=== PATIENT | female | born 1985 | race Caucasian/White ===

== ENCOUNTER 2018-05-09 11:08 | Day surgery (SDC) | payer MEDICAID, OTHER ==
--- NOTE | 2018-05-03 23:32 | PREOPHP ---
DATE OF ADMISSION: 05/09/2018 The patient is coming on 05/09/2018 for a surgical procedure. HISTORY OF PRESENT ILLNESS: This is a 32-year-old female 5, para 4 with 3 full term deliveri es. First baby stillbirth at 22 weeks followed by spontaneous vaginal deliveries. All 3 of them wit h cerclages due to cervical incompetence. This patient is now. Her due date is 11/05/2018. Her last period was 01/08/2018 and she is being admitted as an outpatient for cerclage of the cervi x. The patient had been bleeding and spotting since early and the patient with a history o f 3 previous cerclages has been scheduled for a cerclage at 14 weeks of her . PAST MEDICAL HISTORY: Otherwise, is healthy. ALLERGIES: HAS NO ALLERGIES. She has no history of drugs. SOCIAL HISTORY: No history of smoking or alcohol. FAMILY HISTORY: Cancer and varicosities. PHYSICAL EXAMINATION: VITAL SIGNS: Normal. The blood pressure is 120/80. She weighs 225 pounds. She is 5 feet 4 inches and she has morbid obesity. HEAD AND NECK: Normal. CHEST: Clear. HEART: Normal sinus rhythm. LUNGS: Clear. ABDOMEN: Soft, nontender. No masses. The uterus at 14 weeks size of a with normal heart tones. PELVIC: With a cervix that is closed and noneffaced. at this time, and normal heart tones. EXTREMITIES: Normal with normal pulses and no edema. DIAGNOSES: 1. 14 weeks , previous 3 vaginal deliveries with cerclages of the cervix af ter a stillbirth at 22 weeks. PLAN: She is undergoing a cervical cerclage again She has been advised of the possible risks and pos sible complications of the procedure with her alternatives and options. Written information was prov ided. She had no more questions and agreed to go ahead with the procedure with full understanding an d no more questions. Dictated By: FRANCIS SHAW/NTS Conf#: [id number] DID#: [id number]
[~2018-05-09] VITALS: Ht 162.6 cm; Wt 97.6 kg
[2018-05-09] VITALS (10 sets, daily range): BP systolic 101–126; BP diastolic 58–95; PULSE 77–96; RESP 16–26; Ht 162.6 cm; Wt 97.6 kg
--- NOTE | 2018-05-09 07:46 | HPN ---
Date/Time of Note Date/Time of Note DATE: 05/09/18 TIME: 07:46 Interval H&P Admission Note Pt. seen H&P reviewed: No system changes FRANCIS CHARLES MD May 09, 2018 07:46
[~2018-05-09 11:08] MED LIST: CEFAZOLIN 2 GM/50 ML (PMX) 50 ML IVPB ONE
--- NOTE | 2018-05-09 12:17 | PREAC ---
Date/Time of Note Date/Time of Note DATE: 05/09/18 TIME: 12:17 Anesthesia Eval and Record Evaluation Time Pre-Procedure Interview DATE: 05/09/18 TIME: 12:17 Age 32 Sex female NPO: 8 hrs Preoperative diagnosis Cervical incompetence Planned procedure Cervical cerclage Past Medical History Past Medical History: None Surgery & Anesthesia Issues No known issue Meds Anticoagulation: No Beta Mara within 24 hr: No Reason Beta Mara not given: Pt. not on B-Mara No Active Prescriptions or Reported Meds Meds reviewed: Yes Allergies Coded Allergies: No Known Allergy (Verified , 05/09/18) Allergies Reviewed: Yes Labs/Studies Labs Reviewed: Reviewed by anesthesiologist Result Diagram: 05/09/18 1135 Laboratory Tests 05/09/18 11:35 test: Positive (14 week ) Pre-procedure Exam Last vitals Vital Signs Date Temp Pulse Resp B/P (MAP) Pulse Ox O2 O2 Flow FiO2 Time Delivery Rate 05/09/18 98.1 96 16 126/82 100 Room Air 11:15 (97) Airway: Adequate mouth opening Mallampati: Mallampati II Teeth: Normal Lung: Normal Heart: Normal ASA Physical Status ASA physical status: 2 Emergency: None Planned Anesthetic Neuraxial: Spinal Planned Pain Management Parenteral pain med Pre-operative Attestations Prior to commencing anesthesia and surgery, the patient was re-evaluated, there was verification of: *The patient's identity *The results of appropriate recent lab work and preoperative vital signs *The above evaluation not changing prior to induction *Anesthetic plan, risk benefits, alternative and complications discussed with patient/family; questions answered; patient/family understands, accepts and wishes to proceed. MIKAYLA UMAÑA MD May 09, 2018 12:17
[2018-05-09] MEDS ORDERED: CEFAZOLIN 1 GM INJ ONE (12:47)
--- NOTE | 2018-05-09 13:19 | PD.PPDC ---
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
--- NOTE | 2018-05-09 13:26 | SIPON ---
Date/Time of Note Date/Time of Note DATE: 05/09/18 TIME: 13:25 Operative Report Preoperative Diagnosis 15 weeks Cervical incompetence 3 previous cerclage of cervix Postoperative Diagnosis Same Operation/Procedure Performed Cervical cerclage Barreto procedure Surgeon see signature line assistant drafter None Anesthesia: spinal Estimated blood loss: minimal Transfusion Required none Specimen None Grafts/Implants none Complications none FRANCIS CHARLES MD May 09, 2018 13:26
--- NOTE | 2018-05-09 13:57 | OPR ---
DATE OF OPERATION: 05/09/2018 PROCEDURES: Cervical cerclage, Barreto procedure. PREOPERATIVE DIAGNOSES: 1. Cervical length incompetence. 2. A 15 weeks' . POSTOPERATIVE DIAGNOSES: 1. Cervical length incompetence. 2. A 15 weeks' . ANESTHESIA: Spinal anesthesia. ANESTHESIOLOGIST: Abelino Toribio MD COMPLICATIONS: None. PROCEDURE IN DETAILS: The patient was given a spinal anesthesia, placed in the supine position in li thotomy position. A Gomez catheter was placed in the bladder. The vaginal area was prepped and drap ed and Mersilene suture #5 was passed at the cervical vaginal junction at 12 o'clock, 3 o'clock, 6 o' clock and 9 o'clock and tied at 12 o'clock with several knots. The ends and stumps of the sutures we re sutured together with #0 silk and #1 nylon to prevent dislodgement of the sutures. The patient to lerated the procedure well and left the OR awake and stable. Sponge counts and instrument counts wer e correct. Intravenous antibiotics were given for prophylaxis. Blood loss was minimal and the urine was clear at the end of the procedure. Dictated By: FRANCIS SHAW/BRYNN Conf#: [id number] DID#: [id number]
--- NOTE | 2018-05-09 22:46 | PAC ---
Date/Time of Note Date/Time of Note DATE: 05/09/18 TIME: 22:45 Post-Anesthesia Notes Post-Anesthesia Note Last documented vital signs Vital Signs Date Temp Pulse Resp B/P (MAP) Pulse Ox O2 O2 Flow FiO2 Time Delivery Rate 05/09/18 98.0 77 20 114/58 14:34 (76) 05/09/18 100 Room Air 13:57 Activity: WNL Respiratory function: WNL Cardiovascular function: WNL Mental status: Baseline Pain reasonably controlled: Yes Hydration appropriate: Yes Nausea/Vomiting absent: Yes MIKAYLA UMAÑA MD May 09, 2018 22:46
== END 2018-05-09 18:39 | disposition home or self-care (01) ==
LOC: SDS 11:08 → L-D 14:15 → SDS 18:39
PROVIDERS: ATTEND Obstetrics & Gynecology
DX: O34.32 Maternal care for cervical incompetence, second trimester (principal); Z3A.15 15 weeks gestation of pregnancy
CPT/HCPCS: 59320; 81001; 84703; 85025; 85610; 85730; J0690; Z7512; Z7610

== ENCOUNTER 2018-09-27 23:20 | Outpatient (CLI) | payer OTHER ==
[~2018-09-27] VITALS: Ht 162.6 cm; Wt 99.6 kg
[2018-09-27 23:45] VITALS: BP 107/70; PULSE 97; RESP 18; Ht 162.6 cm; Wt 99.6 kg
[2018-09-28] MEDS ORDERED: PREN-99 PO (00:26)
--- NOTE | 2018-09-28 02:57 | TRIAGE ---
OB Triage Datetime Report Generated by CPN: 09/28/2018 02:57 Datetime: 09/28/2018 01:07 Monitor Mode: External Datetime: 09/28/2018 01:00 Monitor Mode: External Datetime: 09/28/2018 00:17 Labor Evaluation Frequency: IRREGULAR Monitor Mode: External Duration (sec)2399: 50-70 Quality: Mild Pattern: Normal: <= 5 Contractions in 10 Minutes Resting Tone [place]: Relaxed Heart Rate FHR Baseline Rate: 135 Monitor Mode: External US Variability: Moderate 6-25 bpm Accelerations: 15X15 Decelerations: None Category: Category I Comments: NST REACTIVE Datetime: 09/28/2018 00:16 Monitor Mode: External Datetime: 09/27/2018 23:50 Time of Arrival: 09/27/2018 23:17 EGA: 34.3 Arrived By: Wheelchair Arrived From: Home Chief Complaint: c/o irregular UC's from 09/26/2018. Dr. Stuart sent her for follow up since she has a cervical cerclage in place. UC's became regular at 2230 every 20 minutes. Movement: Present Contractions: Regular Time Contractions Began: 09/27/2018 22:30 Contractions: 20 MINUTES Rupture of Membranes: Denies Vaginal Discharge: Denies Recent Sexual Intercouse: Denies Abdominal Trauma: Not Applicable Patient Complaints: Contractions; Back Pain Time Provider Notified: 09/27/2018 23:53 Provider Notified: MELVIN Initial Plan: EFM Datetime: 09/27/2018 23:45 Stage of : OB Triage Assessment Type: Triage Maternal Assessment Level of Consciousness: Fully Conscious DTR's/Clonus: DTRs 2+; No Clonus Headache: Denies Blurred Vision: No Respiratory Effort: Unlabored; Regular Rhythm; Equal Expansion Breath Sounds, Left: Clear and Equal Breath Sounds, Right: Clear and Equal Nausea/Vomiting: Denies RUQ Epigastric Pain: Denies Facial Edema: None Temperature Route: Oral Fall Risk Assessment History of Falling: (0) No Secondary Diagnosis: (0) No Ambulatory Aid: (0) Bedrest/Nurse Assist IV Therapy: (0) No Gait: (0) Normal/Bedrest/Immobile Mental Status: (0) Oriented to Own Ability Fall Score: 0 Fall Risk Score Definition: No Risk: No action required Pain Assessment Pain Scale: 5 Pain Presence: Intermittent Pain Type: Contraction Pain Location: Abdomen; Back Pain Goal: 0 Pain Relief Measures: Comfort Measures Datetime: 09/27/2018 23:43 Monitor Mode: External Monitor Mode: External US Datetime: 09/27/2018 23:41 Stage of : OB Triage
--- NOTE | 2018-09-28 02:57 | PN ---
Triage Information Date/Time 09/28/18 Reason for visit: Uterine contractions Weeks of Gestation 34w3d /Para A1 Diabetes: none Hypertention: none Objective Vital Signs Date Temp Pulse Resp B/P (MAP) Pulse Ox O2 O2 Flow FiO2 Time Delivery Rate 09/27/18 98.1 97 18 107/70 Room Air 23:45 (82) Heart Rate: 140's Heart Rate Comments CAT I Results/Medications Results 24 hrs Laboratory Tests Test 09/27/18 23:45 Urine Color YELLOW Urine Clarity SLIGHTLY CLOUDY A Urine pH 5.0 Urine Specific [place] 1.028 Urine Ketones TRACE A Urine Nitrite NEGATIVE Urine Bilirubin NEGATIVE Urine Urobilinogen 1+ H Urine Leukocyte Esterase NEGATIVE Urine Microscopic RBC 3 Urine Microscopic WBC 11 H Urine Calcium Oxalate Crystals MODERATE Urine Bacteria MODERATE Urine Mucus MODERATE Urine Hemoglobin NEGATIVE Urine Glucose NEGATIVE Urine Total Protein NEGATIVE Imaging Results JOE 9.2 CVL 4.3 BPP 8/8 Disposition: Discharge Assessment/Plan A IUP 34w3 borderline oligo acute cystitis urine culture sent P RT for check the JOE in 3days LUCAS MARTINEZ MD September 28, 2018 02:57
--- NOTE | 2018-09-28 03:09 | TRIAGE ---
OB Triage Datetime Report Generated by CPN: 09/28/2018 03:09 Datetime: 09/27/2018 23:50 EGA: 34.3
== END 2018-09-28 03:08 | disposition home or self-care (01) ==
LOC: L-D 23:20 → OBT 23:20
PROVIDERS: ATTEND Obstetrics & Gynecology
DX: O23.13 Infections of bladder in pregnancy, third trimester (principal); O62.9 Abnormality of forces of labor, unspecified; O41.03X0 Oligohydramnios, third trimester, not applicable or unspecified; Z3A.34 34 weeks gestation of pregnancy
CPT/HCPCS: 76817; 76818; 81001; 81003; 87086; Z7500; G0463

== ENCOUNTER 2018-10-01 23:20 | Outpatient (CLI) | payer OTHER ==
[~2018-10-01] VITALS: Ht 160 cm; Wt 100.2 kg
[~2018-10-01 23:20] MED LIST changes: -CEFAZOLIN 2 GM/50 ML (PMX) 50 ML IVPB ONE; +PREN-99 PO
[2018-10-01 23:49] VITALS: Ht 160 cm; Wt 100.2 kg
--- NOTE | 2018-10-02 01:36 | PN ---
Triage Information Date/Time October 02, 2018 Reason for visit: Oligohydramnios Weeks of Gestation 35w /Para 5/3 Diabetes: none Hypertention: none Additional information Pt has a cerclage, which she has had for all her pregnancies. She was sent in 09/[address] Stuart thought she felt that her cervix was a bit short on one side. The cervix proved to be long and closed but the JOE was 9.[address] Tobias asked her to return today for a recheck. +FM. No leaking or bleeding. PMHx: none. PSHx: Cerclage x 4. POBHx: x 3. NKDA. Objective BP 114/71 T= 97.6 Heart Rate: 130's Heart Rate Comments Accels to 150 BPM. No decels. Contractions: None Results/Medications Imaging Results BPP 8 with an JOE of 12. VTX. Disposition: Discharge Assessment/Plan A: IUP at 35 weeks. Cerclage. F/u oligohydramnios. P: August d/c home. No need for f/u unless Dr Stuart wishes her to. kick counts and PTL precautions reviewed. ONUR AZUL MD Oct 02, 2018 01:36
--- NOTE | 2018-10-02 03:53 | TRIAGE ---
OB Triage Datetime Report Generated by CPN: 10/02/2018 03:53 Datetime: 10/02/2018 01:30 Stage of : OB Triage Labor Evaluation Frequency: X1/30 MIN Monitor Mode: External Duration (sec)2399: 40 Quality: Mild Pattern: Normal: <= 5 Contractions in 10 Minutes Resting Tone [place]: Relaxed Heart Rate FHR Baseline Rate: 130 Monitor Mode: External US Variability: Moderate 6-25 bpm Accelerations: 15X15 Decelerations: None Category: Category I Pain Assessment Pain Scale: 0 Pain Presence: None/Denies Datetime: 10/02/2018 01:00 Stage of : OB Triage Labor Evaluation Frequency: X1/1 HR Monitor Mode: External Duration (sec)2399: 40 Quality: Mild Pattern: Normal: <= 5 Contractions in 10 Minutes Resting Tone [place]: Relaxed Heart Rate FHR Baseline Rate: 135 Monitor Mode: External US Variability: Moderate 6-25 bpm Decelerations: None Category: Category I Pain Assessment Pain Scale: 0 Pain Presence: None/Denies Datetime: 10/02/2018 00:00 Stage of : OB Triage Temperature Route: Oral Labor Evaluation Frequency: 0 Monitor Mode: External Pattern: Normal: <= 5 Contractions in 10 Minutes Resting Tone [place]: Relaxed Heart Rate FHR Baseline Rate: 130 Monitor Mode: External US Variability: Moderate 6-25 bpm Accelerations: 15X15 Decelerations: None Category: Category I Pain Assessment Pain Scale: 0 Pain Presence: None/Denies Datetime: 10/01/2018 23:46 Assessment Type: Triage Time of Arrival: 10/01/2018 23:15 EGA: 36.0 Arrived By: Wheelchair Arrived From: Home Chief Complaint: REPEAT BPP/JOE Movement: Present Contractions: Occasional Rupture of Membranes: Denies Vaginal Bleeding: None Vaginal Discharge: Denies Recent Sexual Intercouse: Denies Abdominal Trauma: Not Applicable Time Provider Notified: 10/02/2018 00:30 Provider Notified: Reiche Initial Plan: EFM, BPP/JOE Maternal Assessment Level of Consciousness: Fully Conscious DTR's/Clonus: DTRs 2+; No Clonus Headache: Denies Blurred Vision: No Respiratory Effort: Unlabored; Regular Rhythm; Equal Expansion Breath Sounds, Left: Clear and Equal Breath Sounds, Right: Clear and Equal Nausea/Vomiting: Denies RUQ Epigastric Pain: Denies Lower Extremities Edema: None Upper Extremities Edema: None Facial Edema: None Fall Risk Assessment History of Falling: (0) No Secondary Diagnosis: (0) No Ambulatory Aid: (0) Bedrest/Nurse Assist IV Therapy: (0) No Gait: (0) Normal/Bedrest/Immobile Mental Status: (0) Oriented to Own Ability Fall Score: 0 Fall Risk Score Definition: No Risk: No action required Datetime: 09/28/2018 02:41 Labor Evaluation Frequency: IRREGULAR Monitor Mode: External Duration (sec)2399: 50-110 Quality: Mild Pattern: Normal: <= 5 Contractions in 10 Minutes Resting Tone [place]: Relaxed Datetime: 09/28/2018 02:40 Pain Presence: None/Denies Pain Assessment Comments: PT C/O OCCASIONAL CRAMPING Datetime: 09/28/2018 01:40 Labor Evaluation Frequency: X1 Monitor Mode: External Duration (sec)2399: 100 Quality: Mild Pattern: Normal: <= 5 Contractions in 10 Minutes Resting Tone [place]: Relaxed Datetime: 09/28/2018 01:01 Labor Evaluation Frequency: X1 Monitor Mode: External Duration (sec)2399: 90 Quality: Mild Pattern: Normal: <= 5 Contractions in 10 Minutes Resting Tone [place]: Relaxed Datetime: 09/27/2018 23:50 EGA: 35.3 Vaginal Bleeding: None Datetime: 09/27/2018 23:45 Fall Score: 0 Fall Risk Score Definition: No Risk: No action required
== END 2018-10-02 01:46 | disposition home or self-care (01) ==
LOC: OBT 23:20 → L-D 23:20 → OBT 10-02 01:46
PROVIDERS: ATTEND Obstetrics & Gynecology
DX: O41.03X0 Oligohydramnios, third trimester, not applicable or unspecified (principal); Z3A.35 35 weeks gestation of pregnancy
CPT/HCPCS: 76818; Z7500; G0463

== ENCOUNTER 2018-10-20 10:25 | Outpatient (CLI) | payer OTHER ==
[~2018-10-20] VITALS: Ht 162.6 cm; Wt 99.0 kg
[2018-10-20 10:44] VITALS: BP 129/78; PULSE 18; RESP 18; Ht 162.6 cm; Wt 99.0 kg
--- NOTE | 2018-10-20 13:26 | PN ---
Triage Information Date/Time 33 years old female 5 para 4 abortions 1 with 3 term deliveries and one at 22 weeks stillbirth at 22 weeks ,after that stillbirth in 2008 this patient had 3 cerclages with the present her fourth cerclage due to cervical incompetence. so far she has done very very well and she is at 38 weeks now. her last menstrual period was 01/08/2018 at she is a 38 weeks. she has been pepe irregularly for which the decision was to remove the cerclage and monitor her. The patient will be monitored for the next couple of hours and if she is not pepe harder and no further dilatation is seen she will be sent home PIH labs will be done due to the reflexes are hyperactive at 3+ almost brisk with normal blood pressure. NST BPP were normal. Reason for visit: Weeks of Gestation 38 /Para 5 para 4 Hypertention: none Objective Vital Signs Date Temp Pulse Resp B/P (MAP) Pulse Ox O2 O2 Flow FiO2 Time Delivery Rate 10/20/18 98.5 18 18 129/78 Room Air 10:44 (95) Heart Rate: 130's Contractions: >10 Minutes Apart Disposition: Discharge Assessment/Plan She will be discharged if she is not pepe in the next 2 hours. The cerclage was removed. after the cerclage was removed the cervix is at 2 cm with 50% effacement -2 station and membranes intact. She has no dizziness headaches epigastric pain nor blurred vision. Leg edema is negative.. Her final diagnosis is: 38 weeks with a cerclage (due to cervical incompetence placed in the first trimester of .) Patient with irregular contractions. Cerclage removal. She will be evaluated for mild preeclampsia. And will be sent home if she is stable and have no imminent active labor. FRANCIS CHARLES MD Oct 20, 2018 13:25
--- NOTE | 2018-10-20 15:28 | TRIAGE ---
OB Triage Datetime Report Generated by CPN: 10/20/2018 15:28 Datetime: 10/20/2018 15:00 Labor Evaluation Frequency: x1 Monitor Mode: External Duration (sec)2399: 40 Quality: Mild Pattern: Normal: <= 5 Contractions in 10 Minutes Resting Tone [place]: Relaxed Heart Rate FHR Baseline Rate: 130 Variability: Moderate 6-25 bpm Accelerations: 15X15 Comments: loss of contact Datetime: 10/20/2018 14:13 Comments: loss of contact, pt repositioned on her side Datetime: 10/20/2018 14:00 Labor Evaluation Frequency: 0 Monitor Mode: External Quality: Mild Pattern: Normal: <= 5 Contractions in 10 Minutes Resting Tone [place]: Relaxed Contraction Comments: OCCASIONAL 30 SECOND IRRITABILITY NOTED Heart Rate FHR Baseline Rate: 125 Monitor Mode: External US Variability: Moderate 6-25 bpm Accelerations: 15X15 Decelerations: None Category: Category I Pain Assessment Pain Scale: 0 Pain Presence: None/Denies Pain Type: N/A Pain Assessment Comments: RESTING COMFORTABLY Datetime: 10/20/2018 13:10 DTR's/Clonus: DTRs 2+ Datetime: 10/20/2018 13:05 Vaginal Exam Dilatation (cms): 2.0 Effacement (%): 50 Station: -2 Exam By: DR CHARLES Membrane Status: Intact Vaginal Bleeding: Small Cervix, Consistency: Moderate Cervix, Position: Midposition Presentation 'A': Cephalic Datetime: 10/20/2018 13:00 Labor Evaluation Frequency: x2 Monitor Mode: External Duration (sec)2399: 60-90 Quality: Mild Pattern: Normal: <= 5 Contractions in 10 Minutes Resting Tone [place]: Relaxed Heart Rate FHR Baseline Rate: 125 Monitor Mode: External US Variability: Moderate 6-25 bpm Accelerations: 15X15 Decelerations: None Category: Category I Datetime: 10/20/2018 11:58 Comments: U/S TECH AT B/S Datetime: 10/20/2018 11:57 Labor Evaluation Frequency: 0 Monitor Mode: External Pattern: Normal: <= 5 Contractions in 10 Minutes Resting Tone [place]: Relaxed Heart Rate FHR Baseline Rate: 130 Monitor Mode: External US Variability: Moderate 6-25 bpm Accelerations: 15X15 Decelerations: None Category: Category I Datetime: 10/20/2018 11:40 Labor Evaluation Frequency: X3 Monitor Mode: External Duration (sec)2399: 50-70 Quality: Mild Pattern: Normal: <= 5 Contractions in 10 Minutes Resting Tone [place]: Relaxed Heart Rate FHR Baseline Rate: 130 Monitor Mode: External US Variability: Moderate 6-25 bpm Accelerations: 15X15 Decelerations: None Category: Category I Datetime: 10/20/2018 10:49 Comments: loss of contact while repositioning, efm adjusted Datetime: 10/20/2018 10:40 Assessment Type: Triage Maternal Assessment Level of Consciousness: Keenly Alert, Responsive DTR's/Clonus: DTRs 2+; No Clonus Headache: Denies Blurred Vision: No Respiratory Effort: Unlabored; Regular Rhythm; Equal Expansion Breath Sounds, Left: Clear and Equal Breath Sounds, Right: Clear and Equal Nausea/Vomiting: Denies RUQ Epigastric Pain: Denies Lower Extremities Edema: None Degree: None Upper Extremities Edema: None Degree: None Facial Edema: None Fall Risk Assessment History of Falling: (0) No Secondary Diagnosis: (0) No Ambulatory Aid: (0) Bedrest/Nurse Assist IV Therapy: (0) No Gait: (0) Normal/Bedrest/Immobile Mental Status: (0) Oriented to Own Ability Fall Score: 0 Fall Risk Score Definition: No Risk: No action required Datetime: 10/20/2018 10:38 Time of Arrival: 10/20/2018 10:20 EGA: 37.5 Arrived By: Wheelchair Arrived From: Home Chief Complaint: scheduled for cerclage removal at 1000 Movement: Present Contractions: Denies/Absent Rupture of Membranes: Denies Vaginal Bleeding: None Vaginal Discharge: Denies Recent Sexual Intercouse: Denies Abdominal Trauma: Not Applicable Patient Complaints: None Additional Patient Complaints: denies any complaints Time Provider Notified: 10/20/2018 10:49 Provider Notified: ABUSLEME Initial Plan: NST AND VS THEN CALL OB AND NOTIFY OF PT'S ARRIVAL Pain Assessment Pain Scale: 0 Pain Presence: None/Denies Pain Type: N/A Datetime: 10/01/2018 23:46 EGA: 35.0 Fall Score: 0 Fall Risk Score Definition: No Risk: No action required Datetime: 09/27/2018 23:50 EGA: 34.3 Datetime: 09/27/2018 23:45 Fall Score: 0 Fall Risk Score Definition: No Risk: No action required
== END 2018-10-20 15:00 | disposition home or self-care (01) ==
LOC: L-D 10:25 → OBT 10:25
PROVIDERS: ATTEND Obstetrics & Gynecology
DX: O34.33 Maternal care for cervical incompetence, third trimester (principal); Z3A.38 38 weeks gestation of pregnancy
CPT/HCPCS: 76818; 80053; 81003; 84560; 85025; 85384; 85610; 85730; Z7500; G0463